=== PATIENT | female | born 1985 | race Caucasian/White ===

== ENCOUNTER → 2020-07-23 | Outpatient (CLI) | payer MEDICAID, SELFPAY ==
[2020-07-23 09:25] VITALS: BMI 25.1
== END | disposition home or self-care (01) ==
LOC: LABSPEC 16:29
PROVIDERS: PCP Physician Assistant; Visit Provider Surgery
DX: L02.214 Cutaneous abscess of groin (principal)
CPT/HCPCS: 87070; 87075; 87205

== ENCOUNTER → 2020-08-30 14:11 | Outpatient (CLI) | payer MEDICAID, SELFPAY ==
[2020-08-30 13:04] VITALS: BMI 25.1
--- NOTE | 2020-08-30 13:23 | CYST_PTH ---
PATIENT: DHARMESH VENCES LOC: [facility] U#:[id number] AGE/SX: 39/F ROOM: RE08/30/[address]: Dr. Rand Corrales MD : [id number] BED: DIS: SPEC #: [id number] RECD: 08/30/20 13:57 STATUS: SHELDON VIRAL #: [id number] EDVIN: 08/30/20 13:[address]: Rand Corrales DEPT: SURGICAL PATHOLOGY RECD BY: Penny Esquivel ENTERED: 08/31/20 09:57 SP TYPE: Cyst OTHR DR: POLLO Naidu Tissues: CYST Procedures: Surgery Specimen Level III HEADER OPERATION: Excision of right groin cyst PRE-OP DIAGNOSIS: Abscess of right groin L02.214 TISSUE SUBMITTED: Right groin cyst MICROSCOPIC DIAGNOSIS Right groin cyst, biopsy: Epidermal inclusion cyst. AM:rosana 09/01/2020 MICROSCOPIC DESCRIPTION Slides are reviewed. GROSS DESCRIPTION Received in fixative is one container labeled with the patient's name and designated right groin cyst. The specimen consists of a piece of skin with underlying tissue measuring 0.5 x 0.3 cm and up to 0.4 cm in thickness. The specimen is inked and submitted entirely in one cassette. / SJ:rg 08/31/20 TC:5 CPT: 84485
== END ==
PROVIDERS: PCP Physician Assistant; Referring Provider Surgery; Visit Provider Surgery
DX: L02.214 Cutaneous abscess of groin (principal)
CPT/HCPCS: 88304; 88305

== ENCOUNTER 2021-03-15 11:35 | Outpatient (CLI) | payer MEDICAID, SELFPAY ==
[2021-03-18 14:45] LABS: HPV APTIMA, High Risk Negative (Negative)
== END 2021-03-15 23:59 | disposition short-term general hospital (02) ==
LOC: LABSPEC 11:36
PROVIDERS: PCP Physician Assistant; Visit Provider Student in an Organized Health Care Education/Training Program
DX: Z12.4 Encounter for screening for malignant neoplasm of cervix (principal)
CPT/HCPCS: 87624; 88175; G0145